=== PATIENT | female | born 1970 | race American Indian/Alaskan Native ===

== ENCOUNTER 2020-09-16 02:39 | Emergency (ER) | payer SELFPAY ==
[2020-09-16] MEDS ORDERED: ASPIRIN 81 MG TAB CHEW PO ONE (03:58)
[2020-09-16 04:24] LABS: Basophils # (Auto) 0.2 K/mm3 (0.0-0.1); Basophils % (Auto) 2.1 % (0.0-1.8); Eosinophils # (Auto) 0.2 K/mm3 (0.0-0.4); Eosinophils % (Auto) 2.2 % (0.0-4.3); Hemoglobin 10.2 gm/dl (10.1-14.3); Lymphocytes # (Auto) 2.6 K/mm3 (1.2-5.4); Lymphocytes % (Auto) 32.2 % (13.4-35.0); Mean Corpuscular HGB Conc 32 % (30-34); Mean Corpuscular Volume 76 fl (79-97); Monocytes # (Auto) 0.5 K/mm3 (0.0-0.8); Monocytes % (Auto) 6.7 % (0.0-7.3); Platelet Count 393 K/mm3 (140-440); Red Cell Distribution Width 18.2 % (13.2-15.2)
--- NOTE | 2020-09-16 04:32 | XRay Report ---
XR chest routine 2V INDICATION / CLINICAL INFORMATION: Chest Pain COMPARISON: None available. FINDINGS: SUPPORT DEVICES: None. HEART / MEDIASTINUM: No significant abnormality. LUNGS / PLEURA: Lungs are clear. Costophrenic sulci are sharp. No pneumothorax. ADDITIONAL FINDINGS: No significant additional findings. IMPRESSION: 1. No acute findings. Signer Name: Cheikh Aguilar MD Signed: 09/16/2020 4:27 AM Workstation Name: [id number]
[2020-09-16 04:50] LABS: Blood Urea Nitrogen 10 mg/dL (7-17); Calcium 9.1 mg/dL (8.4-10.2); Hemolysis Index 0
[2020-09-16 04:52] LABS: BUN/Creatinine Ratio 14
--- NOTE | 2020-09-16 05:18 | Emergency Department Report ---
ED Chest Pain HPI - General Chief Complaint: Chest Pain Stated Complaint: CHEST PAIN Time Seen by Provider: 09/16/20 05:13 Source: patient Mode of arrival: Ambulatory Limitations: No Limitations - History of Present Illness Initial Comments: Patient is 50 years old female with history of hypertension and panic attack. Patient presented to the ER stating that she had a sudden onset of chest pain similar to her previous panic attack. Patient described her pain tightness with no radiation no shortness of breath. By the time I examined the patient she stated that her chest pain is completely resolved. Patient denied any fever or chills. MD Complaint: chest pain -: Sudden Onset: during rest Pain Location: substernal Severity: moderate - Related Data Allergies Allergy/AdvReac Type Severity Reaction Status Date / Time No Known Allergies Allergy Verified 09/16/20 05:18 Heart Score - HEART Score History: Slightly suspicious EKG: Normal Age: 45-65 Risk factors: 1-2 risk factors Troponin: < normal limit HEART Score: 2 - EKG Read Time Time EKG Completed: 03:08 EKG Read Time: 03:14 ED Review of Systems ROS: Stated complaint: CHEST PAIN Other details as noted in HPI Comment: All other systems reviewed and negative Cardiovascular: chest pain Gastrointestinal: denies: abdominal pain, nausea Neurological: denies: headache, weakness, numbness, paresthesias ED Past Medical Hx - Past Medical History Previous Medical History?: No - Surgical History Past Surgical History?: No - Social History Smoking Status: Never Smoker ED Physical Exam - General Limitations: No Limitations General appearance: alert, in no apparent distress - Head Head exam: Present: atraumatic, normocephalic, normal inspection - Eye Eye exam: Present: normal appearance, PERRL - Respiratory Respiratory exam: Present: normal lung sounds bilaterally - Cardiovascular Cardiovascular Exam: Present: regular rate, normal rhythm, normal heart sounds. Absent: irregular rhythm - GI/Abdominal GI/Abdominal exam: Present: soft. Absent: distended, tenderness, guarding, rebound, rigid - Extremities Exam Extremities exam: Present: normal inspection, full ROM, normal capillary refill. Absent: pedal edema, calf tenderness - Back Exam Back exam: Present: normal inspection, full ROM. Absent: CVA tenderness (R), CVA tenderness (L) - Neurological Exam Neurological exam: Present: alert, oriented X3, CN II-XII intact, normal gait, reflexes normal. Absent: motor sensory deficit - Psychiatric Psychiatric exam: Present: normal mood - Skin Skin exam: Present: warm, intact, normal color ED Medical Decision Making - Lab Data Result diagrams: 09/16/20 04:10 09/16/20 04:10 - EKG Data -: EKG Interpreted by Me EKG shows normal: sinus rhythm Rate: normal - EKG Data Interpretation: no acute changes - Radiology Data Radiology results: report reviewed - Medical Decision Making Patient is 50 years old female with history of hypertension and panic attack. Patient presented to the ER stating that she had a sudden onset of chest pain similar to her previous panic attack. Patient described her pain tightness with no radiation no shortness of breath. By the time I examined the patient she stated that her chest pain is completely resolved. Patient denied any fever or chills. EKG showed sinus rhythm no ST elevation. Chest x-ray is negative for acute finding. Labs reviewed and is unremarkable including a negative troponin. Patient symptoms completely resolved and patient stated that this is similar to her panic attack. Patient advised to follow-up with his primary care for outpatient cardiac work-up in the next 2 to 3 days and to return to the ER she develop any new symptoms. Critical care attestation.: If time is entered above; I have spent that time in minutes in the direct care of this critically ill patient, excluding procedure time. ED Disposition Clinical Impression: Atypical chest pain Disposition: DC-01 TO HOME OR SELFCARE Is pt being admited?: No Condition: Stable Instructions: Nonspecific Chest Pain, Adult Referrals: [facility] [place] [Provider Group] - 3-5 Days
[2020-09-16] MEDS ORDERED: LORazepam 1 MG TAB PO ONE (05:48)
[2020-09-16 06:02] VITALS: BP 133/81
--- NOTE | 2020-09-17 17:52 | Electrocardiograph Report ---
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
== END 2020-09-16 06:00 | disposition home or self-care (01) ==
LOC: ED 02:39
DX: R07.89 Other chest pain (principal)
CPT/HCPCS: 36415; 71046; 80048; 84484; 85025; 93005; 99283

== ENCOUNTER 2021-03-07 13:57 | Emergency (ER) | payer SELFPAY ==
[2021-03-07 14:33] VITALS: BP 132/80
[2021-03-07] MEDS ORDERED: CYCLOBENZAPRINE 10 MG TAB PO ONE (14:46)
--- NOTE | 2021-03-07 15:19 | Emergency Department Report ---
ED General Adult HPI - General Chief complaint: Anxiety Stated complaint: throat pain Time Seen by Provider: 03/07/21 14:37 Source: patient Mode of arrival: Ambulatory Limitations: No Limitations - History of Present Illness Initial comments: Patient is a 51-year-old female presents emergency room complaints of myalgias that began a couple days ago. Patient states that she has muscle cramps and tightness in her upper back, neck, shoulders. She denies any fall or injury. She states that she also feels some fullness in her thyroid region. She reports that approximately 26 years ago she was on a thyroid medication but is not sure of the medication. She states usually she gets ultrasounds of her thyroid. She states her next appointment to have her thyroid ultrasound it is on 03/28/2021. Patient states that she also sleeps with a CPAP and is not sure if this is what is causing some irritation. She states that she last had a sleep study 1 year ago. She denies any sore throat, difficulty swallowing, fever, cough, vomiting, diarrhea, CP, SOB. Allergy to amoxicillin. Severity scale (0 -10): 10 - Related Data Previous Rx's Medication Instructions Recorded Last Taken Type Naproxen 375 mg PO BID PRN #14 tablet 03/07/21 Unknown Rx methOCARBAMOL [Robaxin TAB] 500 mg PO BID PRN #14 tab 03/07/21 Unknown Rx Allergies Allergy/AdvReac Type Severity Reaction Status Date / Time amoxicillin AdvReac Hives Verified 03/07/21 14:48 ED Review of Systems ROS: Stated complaint: throat pain Other details as noted in HPI Comment: All other systems reviewed and negative ED Past Medical Hx - Past Medical History Previous Medical History?: Yes Hx Hypertension: Yes Hx GERD: Yes Hx Psychiatric Treatment: Yes (anxiety) - Social History Smoking Status: Never Smoker - Medications Home Medications: Home Medications Medication Instructions Recorded Confirmed Last Taken Type Naproxen 375 mg PO BID PRN #14 tablet 03/07/21 Unknown Rx methOCARBAMOL [Robaxin TAB] 500 mg PO BID PRN #14 tab 03/07/21 Unknown Rx ED Physical Exam - General Limitations: No Limitations General appearance: alert, in no apparent distress - Head Head exam: Present: atraumatic, normocephalic - Eye Eye exam: Present: normal appearance - ENT ENT exam: Present: normal orophraynx, mucous membranes moist - Neck Neck exam: Present: normal inspection, full ROM. Absent: tenderness, meningismus, lymphadenopathy - Respiratory Respiratory exam: Present: normal lung sounds bilaterally. Absent: respiratory distress, wheezes, rales, rhonchi, stridor, chest wall tenderness, accessory muscle use, decreased breath sounds, prolonged expiratory - Cardiovascular Cardiovascular Exam: Present: regular rate, normal rhythm, normal heart sounds. Absent: systolic murmur, diastolic murmur, rubs, gallop - Back Exam Back exam: Present: normal inspection, full ROM. Absent: paraspinal tenderness, vertebral tenderness - Neurological Exam Neurological exam: Present: alert, oriented X3 - Psychiatric Psychiatric exam: Present: normal affect, normal mood - Skin Skin exam: Present: warm, dry, intact ED Course Vital Signs 03/07/21 14:00 Temperature 97.7 F Pulse Rate 75 Respiratory 16 Rate Blood Pressure 132/80 [Left] O2 Sat by Pulse 100 Oximetry ED Medical Decision Making - Lab Data Result diagrams: 03/07/21 14:58 03/07/21 14:58 Lab Results 03/07/21 03/07/21 03/07/21 Range/Units 14:58 14:58 14:58 WBC 7.4 (4.5-11.0) K/mm3 RBC 4.41 (3.65-5.03) M/mm3 Hgb 10.9 (10.1-14.3) gm/dl Hct 35.2 (30.3-42.9) % MCV 80 (79-97) fl MCH 25 L (28-32) pg MCHC 31 (30-34) % RDW 17.0 H (13.2-15.2) % Plt Count 386 (140-440) K/mm3 Lymph % (Auto) 31.3 (13.4-35.0) % [place] % (Auto) 5.7 (0.0-7.3) % Eos % (Auto) 3.2 (0.0-4.3) % Baso % (Auto) 0.8 (0.0-1.8) % Lymph # (Auto) 2.3 (1.2-5.4) K/mm3 [place] # (Auto) 0.4 (0.0-0.8) K/mm3 Eos # (Auto) 0.2 (0.0-0.4) K/mm3 Baso # (Auto) 0.1 (0.0-0.1) K/mm3 Seg Neutrophils % 59.0 (40.0-70.0) % Seg Neutrophils # 4.4 (1.8-7.7) K/mm3 Sodium 138 (137-145) mmol/L Potassium 4.1 (3.6-5.0) mmol/L Chloride 99.9 (98-107) mmol/L Carbon Dioxide 23 (22-30) mmol/L Anion Gap 19 mmol/L BUN 12 (7-17) mg/dL Creatinine 0.7 (0.6-1.2) mg/dL Estimated GFR > 60 ml/min BUN/Creatinine Ratio 17 % Glucose 98 (65-100) mg/dL Calcium 9.4 (8.4-10.2) mg/dL Magnesium 1.80 (1.7-2.3) mg/dL Total Bilirubin 0.20 (0.1-1.2) mg/dL AST 11 (5-40) units/L ALT 10 (7-56) units/L Alkaline Phosphatase 61 (35-129) units/L Total Creatine Kinase 139 H (30-135) units/L Total Protein 6.7 (6.3-8.2) g/dL Albumin 4.0 (3.9-5) g/dL Albumin/Globulin Ratio 1.5 % TSH 0.546 (0.270-4.200) mlU/mL HCG, Qual (Negative) 03/07/21 Range/Units 14:58 WBC (4.5-11.0) K/mm3 RBC (3.65-5.03) M/mm3 Hgb (10.1-14.3) gm/dl Hct (30.3-42.9) % MCV (79-97) fl MCH (28-32) pg MCHC (30-34) % RDW (13.2-15.2) % Plt Count (140-440) K/mm3 Lymph % (Auto) (13.4-35.0) % [place] % (Auto) (0.0-7.3) % Eos % (Auto) (0.0-4.3) % Baso % (Auto) (0.0-1.8) % Lymph # (Auto) (1.2-5.4) K/mm3 [place] # (Auto) (0.0-0.8) K/mm3 Eos # (Auto) (0.0-0.4) K/mm3 Baso # (Auto) (0.0-0.1) K/mm3 Seg Neutrophils % (40.0-70.0) % Seg Neutrophils # (1.8-7.7) K/mm3 Sodium (137-145) mmol/L Potassium (3.6-5.0) mmol/L Chloride (98-107) mmol/L Carbon Dioxide (22-30) mmol/L Anion Gap mmol/L BUN (7-17) mg/dL Creatinine (0.6-1.2) mg/dL Estimated GFR ml/min BUN/Creatinine Ratio % Glucose (65-100) mg/dL Calcium (8.4-10.2) mg/dL Magnesium (1.7-2.3) mg/dL Total Bilirubin (0.1-1.2) mg/dL AST (5-40) units/L ALT (7-56) units/L Alkaline Phosphatase (35-129) units/L Total Creatine Kinase (30-135) units/L Total Protein (6.3-8.2) g/dL Albumin (3.9-5) g/dL Albumin/Globulin Ratio % TSH (0.270-4.200) mlU/mL HCG, Qual Negative (Negative) - EKG Data EKG shows normal: sinus rhythm, axis, intervals Rate: normal - EKG Data 03/07/21 16:07 Low voltage No STEMI No T wave inversion - Medical Decision Making Patient is a 51-year-old female presents emergency room complaints of myalgias that began a couple days ago. Patient states that she has muscle cramps and tightness in her upper back, neck, shoulders. She denies any fall or injury. She states that she also feels some fullness in her thyroid region. She reports that approximately 26 years ago she was on a thyroid medication but is not sure of the medication. She states usually she gets ultrasounds of her thyroid. She states her next appointment to have her thyroid ultrasound it is on 03/28/2021. Patient states that she also sleeps with a CPAP and is not sure if this is what is causing some irritation. She states that she last had a sleep study 1 year ago. She denies any sore throat, difficulty swallowing, fever, cough, vomiting, diarrhea. Allergy to amoxicillin. Vitals are normal. Labs are stable. EKG ordered prior to my examination although pt is not experiencing CP, EKG shows low voltage otherwise stable. Patient given p.o. Flexeril while in the emergency department as she did not drive and her symptoms improved. Discussed all results with patient the importance of outpatient primary care follow-up and keeping her appointment for her thyroid ultrasound. Advised patient to please take medication as prescribed as needed. Increase your fluid intake. Follow-up with your primary care doctor and keep your appointment for your ultrasound. Return to emergency room for any new or worsening symptoms. Recommend outpatient COVID-19 testing and if positive will need to self quarantine for 10 days from onset of symptoms. Critical care attestation.: If time is entered above; I have spent that time in minutes in the direct care of this critically ill patient, excluding procedure time. ED Disposition Clinical Impression: Myalgia Disposition: 01 HOME / SELF CARE / HOMELESS Is pt being admited?: No Does the pt Need Aspirin: No Condition: Stable Instructions: Muscle Cramps and Spasms, [id number] Additional Instructions: please take medication as prescribed as needed. Increase your fluid intake. Follow-up with your primary care doctor and keep your appointment for your ultrasound. Return to emergency room for any new or worsening symptoms. Recommend outpatient COVID-19 testing and if positive will need to self quarantine for 10 days from onset of symptoms. Prescriptions: Naproxen 375 mg PO BID PRN #14 tablet PRN Reason: pain methOCARBAMOL [Robaxin TAB] 500 mg PO BID PRN #14 tab PRN Reason: muscle spasm/pain Referrals: JENNY MURPHY MD [Primary Care Provider] - 3-5 Days AMAYA LALA MD [Staff Physician] - 3-5 Days [facility] [Provider Group] - 3-5 Days Time of Disposition: 16:03 Print Language: SLOVENIAN
[2021-03-07 15:24] LABS: Basophils # (Auto) 0.1 K/mm3 (0.0-0.1); Basophils % (Auto) 0.8 % (0.0-1.8); Eosinophils # (Auto) 0.2 K/mm3 (0.0-0.4); Eosinophils % (Auto) 3.2 % (0.0-4.3); Hematocrit 35.2 % (30.3-42.9); Hemoglobin 10.9 gm/dl (10.1-14.3); Lymphocytes # (Auto) 2.3 K/mm3 (1.2-5.4); Lymphocytes % (Auto) 31.3 % (13.4-35.0); Mean Corpuscular HGB Conc 31 % (30-34); Mean Corpuscular Volume 80 fl (79-97); Monocytes # (Auto) 0.4 K/mm3 (0.0-0.8); Monocytes % (Auto) 5.7 % (0.0-7.3); Platelet Count 386 K/mm3 (140-440); Red Blood Count 4.41 M/mm3 (3.65-5.03)
[2021-03-07 15:50] LABS: Alanine Aminotransferase 10 units/L (7-56); Blood Urea Nitrogen 12 mg/dL (7-17); Calcium 9.4 mg/dL (8.4-10.2); Hemolysis Index 2
[2021-03-07 15:54] LABS: BUN/Creatinine Ratio 17
--- NOTE | 2021-03-09 10:46 | Electrocardiograph Report ---
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
== END 2021-03-07 16:32 | disposition home or self-care (01) ==
LOC: ED 13:57
DX: I10 Essential (primary) hypertension (principal); K21.9 Gastro-esophageal reflux disease without esophagitis; F41.9 Anxiety disorder, unspecified; M79.10 Myalgia, unspecified site; M54.2 Cervicalgia; M54.6 Pain in thoracic spine
CPT/HCPCS: 36415; 80053; 82550; 83735; 84443; 84703; 85025; 93005; 99283

== ENCOUNTER 2021-09-06 19:28 | Emergency (ER) | payer SELFPAY ==
[2021-09-06 19:45] VITALS: BP 136/71
[2021-09-06] MEDS ORDERED: ASPIRIN 325 MG TAB PO ONE (19:51)
--- NOTE | 2021-09-06 20:24 | XRay Report ---
CHEST 2 VIEWS INDICATION / CLINICAL INFORMATION: chest pain. FINDINGS: SUPPORT DEVICES: None. HEART / MEDIASTINUM: No significant abnormality. LUNGS / PLEURA: No significant pulmonary or pleural abnormality. No pneumothorax. ADDITIONAL FINDINGS: No significant additional findings. IMPRESSION: 1. No acute findings. Signer Name: Sundeep Foley MD Signed: 09/06/2021 8:20 PM Workstation Name: [email or web address]
--- NOTE | 2021-09-07 10:50 | Electrocardiograph Report ---
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
== END 2021-09-07 01:50 | disposition left against medical advice (07) ==
LOC: ED 19:28
DX: R07.9 Chest pain, unspecified (principal); F41.9 Anxiety disorder, unspecified; Z53.21 Procedure and treatment not carried out due to patient leaving prior to being seen by health care provider
CPT/HCPCS: 71046; 93005